=== PATIENT | male | born 1935 | race Caucasian/White ===

== ENCOUNTER 2024-10-16 12:15 | Inpatient (IN) ==
--- NOTE | 2024-10-16 12:50 | XRay Report ---
XR chest 1V portable CLINICAL HISTORY: Chest pain, nonspecific COMPARISON STUDY: 06/29/2020 FINDINGS there are postsurgical changes of midline sternotomy. The heart is mildly enlarged. There is mild elevation of the interstitium, likely secondary to mild interstitial edema. There is slight nikolay nting of the lateral costophrenic angle suggesting trace effusions. There is no lobar consolidation. Air beneath the right hemidiaphragm likely represents colonic interposition IMPRESSION: 1. Slight elevation of the interstitium, likely representing mild interstitial edema. No evidence of lobar consolidation ACT 112: Negative or not required by law. Electronically signed by: Ravinder Carpenter M.D. 10/16/2024 12:49 PM
[2024-10-16 12:57] LABS: Hematocrit (blood only) 42.9 % (42.0-52.0); Hemoglobin 14.4 g/dl (14.0-18.0); Immature Granulocytes # (auto) 0.02 K/uL (0.01-0.20); Immature Granulocytes % (auto) 0.3 %; Mean Corpuscular Hemoglobin 31.7 pg (25.0-34.0); Mean Corpuscular Volume 94.5 fL (80.0-100.0); Platelet Count 128 K/uL (130-400); RDW Standard Deviation 46.6 fL (36.4-46.3); Red Blood Count 4.54 M/uL (4.70-6.10); White Blood Count 6.99 K/ul (4.8-10.8)
[2024-10-16 13:13] LABS: Alanine Aminotransferase 15.0 U/L (7-52); Albumin Globulin Ratio 1.2 (0.9-2); Alkaline Phosphatase 68.0 U/L (34-104); Anion Gap 6.0 (3-11); Bilirubin,Total 1.4 mg/dl (0.2-1.0); Blood Urea Nitrogen 35.0 mg/dl (6-23); Calcium 9.3 mg/dl (8.6-10.3); Carbon Dioxide 23.0 mmol/L (21-32); Chloride 110.0 mmol/L (98-107); Creatinine Clr Calc Pharmacy 31.5 ml/min; Globulin 3.2 gm/dl (2.5-4.0); Glucose 144.0 mg/dl (70-99(Fasting)); Potassium 4.4 mmol/L (3.5-5.1); Sodium 139.0 mmol/L (136-145); Total Protein 6.9 gm/dl (6.0-8.3)
[2024-10-16 13:27] LABS: INR 1.1 (0.9-1.1); Partial Thromboplastin Time 26 Seconds (21-31); Prothrombin Time 11.9 Seconds (9.0-12.0)
[2024-10-16] MEDS: OPTIRAY 320 100ml IV ONE (14:45)
--- NOTE | 2024-10-16 15:01 | CT Scan Report ---
CHEST CT WITH CONTRAST CT DOSE: 559.65 mGy.cm HISTORY: sob TECHNIQUE: Multiaxial CT images of the chest were performed following the IV administration of 90 cc of Optiray. A dose lowering technique was utilized adhering to the principles of ALARA. COMPARISON STUDY: 09/19/2023 FINDINGS: There is mild cardiomegaly with prominence of the pulmonary vasculature consistent with CHF . There are bilateral pleural effusions which layer dependently, moderate on the right and small on t he left. There is adjacent mild to moderate lower lobe compressive atelectasis bilaterally. There is no pneumothorax. No pericardial effusion. No enlarged adenopathy. No thoracic aortic dissection or an eurysm. No pulmonary embolism. There are diffuse coronary artery calcifications. There are moderate d iffuse thoracic spine degenerative changes. IMPRESSION: 1. CHF with bilateral pleural effusions. 2. Otherwise as described. ACT 112: Negative or not required by law. Electronically signed by: Rickey Cordon M.D. 10/16/2024 2:59 PM
--- NOTE | 2024-10-16 15:18 | Emergency Department Note ---
Impression & Plan Congestive heart failure, Mild shortness of breath ED Provider Note CHIEF COMPLAINT: Increased shortness of breath HISTORY OF PRESENTING ILLNESS: Patient is an 89-year-old male who presents to the emergency department today for complaints of increased shortness of breath. He does have a significant history of restrictive lung disease, dyspnea on exertion, elevated diaphragm, interstitial lung disease, aortic regurgitation, moderate to severe aortic stenosis, chronic kidney disease. Patient denies a cough but does have wheezing at times throughout the day. It is worse at night and feels he cannot lay flat to sleep. He does follow with pulmonology and cardiology. Last echo was in August 2024. Denies chest pain, abdominal pain, headache, fevers/chills, blood in stool or urine, any recent illness, or any recent travel. REVIEW OF SYSTEMS: See HPI for pertinent positives and pertinent negatives. ALLERGIES: See below MEDICATIONS: See below PAST MEDICAL HISTORY: See below PHYSICAL EXAM: VITALS: Vitals are noted on the nurse's note and reviewed by myself. GENERAL: Non toxic, in no acute distress, non-diaphoretic. SKIN: Capillary refill <2 sec. EYES: PERRLA. EOMI. Conjunctivae without injection, sclerae without icterus. NECK: Supple without nuchal rigidity. HEART: Regular rate and rhythm without murmurs gallops or rubs. LUNGS: Clear to auscultation bilaterally without wheezes, rales or rhonchi. No retractions or accessory muscle use. ABDOMEN: Positive bowel sounds x 4. Normal tympanic percussion. Soft, nontender to palpation. MUSCULOSKELETAL: Mild swelling noted to the bilateral lower extremities. Nonpitting. No gross musculoskeletal defects. NEURO: Patient was alert and oriented. No focal neurological deficits. DIFFERENTIAL DIAGNOSIS: Differential diagnosis includes acute coronary syndrome, pulmonary embolism, pneumothorax, pericarditis, myocarditis, endocarditis, anxiety, musculoskeletal pain, GERD, costochondritis, pneumonia, among others. ED COURSE AND MEDICAL DECISION MAKING: HISTORY FROM INDEPENDENT HISTORIAN: History was provided by the patient and his son who is at bedside. MONITOR: Continuous classroom monitor: Order was placed for continuous classroom monitor. Patient was placed on the classroom monitor and continuous pulse ox. Patient was noted to be in normal sinus rhythm at an initial rate of 55 bpm per my interpretation. EKG: EKG was interpreted by myself as sinus bradycardia with premature supraventricular complexes. Left ventricular hypertrophy with repolarization abnormality. At a rate of 59 bpm. INTERPRETATION OF LABS: I interpreted the labs with full lab results as below in the lab section of this note. Laboratory results pertinent to the emergent complaint are discussed in the MDM section below. The patient was advised to follow up with their PCP and/or specialist(s) for further outpatient monitoring and management of any abnormal results. INTERPRETATION OF IMAGING: Imaging studies were interpreted by myself and read by radiology as per the imaging section of this note. The patient was advised to follow up with their PCP and/or specialist(s) for further outpatient management of any non-emergent abnormal findings. CHRONIC MEDICAL/SOCIAL CONDITIONS AFFECTING CARE: No social concerns were identified as barriers to patients care. EXTERNAL RECORDS REVIEWED: Patient's previous pulmonary visit from 09/15/2024. And his last primary care visit of 06/30/2024. I also reviewed the patient's previous echocardiogram from 08/25/2024 and compared to 09/10/2023. ESCALATION OF CARE CONSIDERED: I considered admission on this patient with a new onset of congestive heart failure CONSULTATIONS: I had a meaningful discussion about this patient with Dr. Padilla who agrees with my assessment and the treatment plan. SUMMARY: I examined the patient for complaints of worsening SOB. A physical exam and history were performed. Nursing notes, EMR, and medication list were personally reviewed.CBC showed no leukocytosis, anemia, thrombocytopenia. CMP showed BUN 35, creatinine 1.49 which appears to be baseline for the patient. PT/INR and PTT were normal. BNP was 2727. No other emergent findings. CXR showed slight elevation of the interstitium like a mild interstitial edema. CT of chest showed CHF with bilateral pleural effusions. Patient declined any pain medicine or antiemetics here in the emergency department today. I spoke with Dr. Elliott who accepts the patient for admission. The patient and his son were both updated on the plan of care and results of his diagnostic studies. Care was transferred to hospitalist services. 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 Restrictive lung disease Laryngopharyngeal reflux BANKS (dyspnea on exertion) Osteoarthritis (Chronic) Mitral regurgitation (Chronic) Hypothyroid (Chronic) Hypertension (Chronic) Hyperlipidemia (Chronic) GERD (gastroesophageal reflux disease) (Chronic) Aortic insufficiency (Chronic) Anxiety (Chronic) Chronic kidney disease CAD (coronary artery disease) Surgical History History of heart surgery (~2012) History of back surgery 1987 and 1997 History of appendectomy (~1953) History of cataract removal with insertion of prosthetic lens 1987, 1997 S/P CABG x 2 Family History Father Family history of cancer of mouth Anxiety Depression Mother Coronary heart disease Diabetes Cardiac disorder Hypertension Denies family history of Ovarian cancer Prostate cancer Myocardial infarction Breast cancer Colorectal cancer Social History Smoking Status: Never smoker Tobacco Type: Cigarettes Age Started Using Tobacco: 18; Age Quit Using Tobacco: 39; packs per day: 0.25; Cigarettes Per Day: 0.25PPD X 21 YEARS; Second Hand Exposure: No; Do You Dip or Chew Tobacco: No; Hx Alcohol Use: No Hx Substance Use: No Preferred Language: Urdu Communication Ability: Effective Visual Impairment: No Limitations Hearing Ability: Hard of Hearing Faculty Research Assistant Required: No Beliefs That Will Affect Care: None marital status: Current Living Situation: Spouse current occupational status: retired Feels Safe at Home: Yes Childhood Exposure to Second-Hand Smoke: Yes Diet: regular caffeine: Yes during the past year weight has: remained stable Dental Care, Regularly: No Physical Activity Frequency: Daily Seatbelt Use: always Sunscreen Use: No Assistive Devices: None Allergies Allergies Allergy/AdvReac Type Severity Reaction Status Date / Time Penicillins Allergy Unknown HIVES Verified 09/29/24 14:53 Home Meds Home Medications Medication Instructions Recorded Confirmed aspirin 81 mg tablet,delayed 0 mg PO DAILY 12/24/18 10/16/24 release (Adult Low Dose Aspirin) multivitamin 1 tab PO DAILY 07/12/22 10/16/24 metoprolol succinate 50 mg 50 mg PO UD 10/16/24 10/16/24 tablet,extended release 24 hr Previous Rx's Medication Instructions Recorded atorvastatin 80 mg tablet 80 mg PO DAILY #90 tabs 10/15/23 levothyroxine 88 mcg tablet 88 mcg PO DAILY #90 tabs 02/22/24 escitalopram oxalate 20 mg tablet 20 mg PO DAILY #90 tabs 04/17/24 sildenafil 50 mg tablet 50 mg PO DAILY PRN sexual activity 06/03/24 #30 tabs betamethasone valerate 0.1 % 1 applic topical BID PRN skin 09/18/24 topical cream irritation #45 grams albuterol sulfate 90 mcg/actuation 2 puff inhalation Q6H PRN 10/01/24 aerosol inhaler Shortness Of Breath Or Wheezing #18 grams amlodipine 5 mg tablet 5 mg PO DAILY #30 tabs 10/18/24 furosemide 20 mg tablet 20 mg PO DAILY PRN Heart 10/18/24 failure/fluid retention #30 tabs Results & Data (ED) Vital Signs Vital Signs - 24 hr 10/16/24 15:19 Pulse Rate [Apical] 52 L Respiratory Rate 16 Blood Pressure [Right Arm] 167/64 H Blood Pressure Mean [Right Arm] 98 Blood Pressure Position [Right Arm] Semi-fowlers Pulse Oximetry 95 Oxygen Delivery Method Room Air Laboratory Data 10/18/24 08:50 10/18/24 08:50 Lab Results 10/16/24 10/16/24 Range/Units 12:35 15:10 WBC 6.99 (4.8-10.8) K/ul RBC 4.54 L (4.70-6.10) M/uL Hgb 14.4 (14.0-18.0) g/dl Hct 42.9 (42.0-52.0) % MCV 94.5 (80.0-100.0) fL MCH 31.7 (25.0-34.0) pg MCHC 33.6 (32.0-36.0) g/dL RDW Std Deviation 46.6 H (36.4-46.3) fL RDW Coeff of Nida 13.4 (11.5-14.5) % Plt Count 128 L (130-400) K/uL MPV 11.3 (9.4-12.4) fL Immature Gran % (Auto) 0.3 % Neut % (Auto) 59.7 % Lymph % (Auto) 28.8 % [place] % (Auto) 8.3 % Eos % (Auto) 2.6 % Baso % (Auto) 0.3 % Neut # (Auto) 4.18 (1.40-6.50) K/uL Lymph # (Auto) 2.01 (1.20-3.40) K/uL [place] # (Auto) 0.58 (0.11-0.59) K/uL Eos # (Auto) 0.18 (0.00-0.50) K/uL Baso # (Auto) 0.02 (0.00-0.20) K/uL Immature Gran # (Auto) 0.02 (0.01-0.20) K/uL PT 11.9 (9.0-12.0) Seconds INR 1.1 (0.9-1.1) APTT 26 (21-31) Seconds PTT Ratio 1.0 Sodium 139 (136-145) mmol/L Potassium 4.4 (3.5-5.1) mmol/L Chloride 110 H (98-107) mmol/L Carbon Dioxide 23 (21-32) mmol/L Anion Gap 6 (3-11) BUN 35 H (6-23) mg/dl Creatinine 1.49 H (0.6-1.4) mg/dl Est Cr Clr Drug Dosing 31.5 ml/min eGFR 45.14 BUN/Creatinine Ratio 23.5 H (10-20) Glucose 144 H (70-99(Fasting)) mg/dl Calcium 9.3 (8.6-10.3) mg/dl Total Bilirubin 1.4 H (0.2-1.0) mg/dl AST 26 (13-39) U/L ALT 15 (7-52) U/L Alkaline Phosphatase 68 (34-104) U/L Troponin I High Sens 17.4 17.4 (0-20) pg/ml B-Natriuretic Peptide 2727 H (0-100) pg/ml Total Protein 6.9 (6.0-8.3) gm/dl Albumin 3.7 (3.4-5.0) gm/dl Globulin 3.2 (2.5-4.0) gm/dl Albumin/Globulin Ratio 1.2 (0.9-2) Administered Medications Acetaminophen (Acetaminophen 325 Mg Tab) 650 mg PO Q8H PRN PRN Reason: Pain Stop: 11/16/24 09:42 Last Admin: 10/17/24 09:51 Dose: 650 mg Documented By: KARLA Aspirin (Aspirin 81 Mg Ectab) 162 mg PO DAILY PANCHITO Stop: 11/16/24 08:59 Last Admin: 10/18/24 09:30 Dose: 162 mg Documented By: Admin: 10/17/24 09:51 Dose: 162 mg Documented By: AMB Atorvastatin Calcium (Atorvastatin 40 Mg Tab) 80 mg PO DAILY PANCHITO Stop: 11/16/24 08:59 Last Admin: 10/18/24 09:30 Dose: 80 mg Documented By: Admin: 10/17/24 09:51 Dose: 80 mg Documented By: KARLA Escitalopram Oxalate (Escitalopram Oxalate 20 Mg Tab) 20 mg PO DAILY PANCHITO Stop: 11/16/24 08:59 Last Admin: 10/18/24 09:30 Dose: 20 mg Documented By: Admin: 10/17/24 09:51 Dose: 20 mg Documented By: KARLA Furosemide (Furosemide Inj 20 Mg/2 Ml Vial) 20 mg IV QAM PANCHITO Stop: 11/16/24 08:59 Last Admin: 10/18/24 08:52 Dose: 20 mg Documented By: Admin: 10/17/24 09:51 Dose: 20 mg Documented By: KARLA Levothyroxine Sodium (Levothyroxine Sodium 88 Mcg Tablet) 88 mcg PO DAILYBB [facility] Stop: 11/16/24 06:29 Last Admin: 10/18/24 06:22 Dose: 88 mcg Documented By: Admin: 10/17/24 06:42 Dose: 88 mcg Documented By: LORRAINE Metoprolol Succinate (Metoprolol Succ 50mg Ext Rel Tab) 75 mg PO PNACHITO Stop: 11/15/24 20:59 Last Admin: 10/17/24 21:00 Dose: Not Given Documented By: Admin: 10/16/24 20:54 Dose: Not Given Documented By: LORRAINE Discontinued Medications Amlodipine Besylate (Amlodipine Besylate 5 Mg Tab) 5 mg PO NOW ONE Stop: 10/18/24 08:05 Last Admin: 10/18/24 08:49 Dose: 5 mg Documented By: ANNA Furosemide (Furosemide 40 Mg/4 Ml Vial) 40 mg IV ONE ONE Stop: 10/16/24 16:58 Last Admin: 10/16/24 17:24 Dose: 40 mg Documented By: NEIL Ioversol (Optiray 320 100ml) 90 ml IV ONCE ONE Stop: 10/16/24 14:46 Last Admin: 10/16/24 14:45 Dose: 90 ml Documented By: BENITO Metoprolol Tartrate (Metoprolol Tartrate 25 Mg Tab) 25 mg PO ONE ONE Stop: 10/17/24 10:38 Last Admin: 10/17/24 12:16 Dose: 25 mg Documented By: AMB Imaging Data Radiologist's Impression: Chest X-Ray 10/16/24 12:24 XR chest 1V portable CLINICAL HISTORY: Chest pain, nonspecific COMPARISON STUDY: 06/29/2020 FINDINGS there are postsurgical changes of midline sternotomy. The heart is mildly enlarged. There is mild elevation of the interstitium, likely secondary to mild interstitial edema. There is slight blunting of the lateral costophrenic angle suggesting trace effusions. There is no lobar consolidation. Air beneath the right hemidiaphragm likely represents colonic interposition IMPRESSION: 1. Slight elevation of the interstitium, likely representing mild interstitial edema. No evidence of lobar consolidation ACT 112: Negative or not required by law. Electronically signed by: Ravinder Carpenter M.D. 10/16/2024 12:[address] 10/16/24 13:[address] CONTRAST CT DOSE: 559.65 mGy.cm HISTORY: sob TECHNIQUE: Multiaxial CT images of the chest were performed following the IV administration of 90 cc of Optiray. A dose lowering technique was utilized adhering to the principles of ALARA. COMPARISON STUDY: 09/19/2023 FINDINGS: There is mild cardiomegaly with prominence of the pulmonary vasculature consistent with CHF. There are bilateral pleural effusions which layer dependently, moderate on the right and small on the left. There is adjacent mild to moderate lower lobe compressive atelectasis bilaterally. There is no pneumothorax. No pericardial effusion. No enlarged adenopathy. No thoracic aortic dissection or aneurysm. No pulmonary embolism. There are diffuse coronary artery calcifications. There are moderate diffuse thoracic spine degenerative changes. IMPRESSION: 1. CHF with bilateral pleural effusions. 2. Otherwise as described. ACT 112: Negative or not required by law. Electronically signed by: Rickey Cordon M.D. 10/16/2024 2:59 PM Discharge Plan Visit Data Chief Complaint: Shortness of Breath/Dyspnea Stated Complaint: BREATHING ED Provider: Imelda Padilla ED Midlevel Provider: Felicia Kc Discharge Problem: Congestive heart failure, Mild shortness of breath Patient Disposition: Admitted As Inpatient Condition: Good Discharge Instructions Interventions: ED Discharge Assessment Last Done: 10/16/24 16:41 Discharge Problem: Congestive heart failure Qualifiers: Heart failure type: unspecified Heart failure chronicity: unspecified Qualified Code(s): I50.9 - Heart failure, unspecified
--- NOTE | 2024-10-16 15:38 | History & Physical Report ---
Date of Service October 16, 2024 Assessment & Plan (1) Congestive heart failure: (2) Pleural effusion: Plan Patient is an 89-year-old male does have a significant history of restrictive lung disease, dyspnea on exertion, elevated diaphragm, interstitial lung disease, aortic regurgitation, mitral regurgitation, moderate to severe aortic stenosis, CAD S/P CABG (2012); chronic kidney disease HTN , HLD, Hypothyroidism. presented with worsening of shortness of breath for 3 days . On CTscan of chest was found to have pleural effusion( R>L) .He is being admitted for management of Congestive Heart Failure and Pleural effusion. #Congestive heart Failure #Acute on Chronic HFpEF -Worsening of Shortness of breath with dyspnea for 3 days -NYHA class -Likely secondary to Aortic Stenosis -Vitals: BP: 165/70; Pulse: 51 -PE: -BNP elevated; Troponin 17.4 -ECG: -Recent Echocardiogram(08/25/24): EF: 55-60%, Moderate to severe valvular aortic stenosis, Mild to Moderate aortic regurgitation Plan -Lasix 40mg IV stat ordered -Patient on RA currently. Supplement as needed -2l Fluid restriction. Heart healthy diet -Strict Ins/Outs -Electrolyte replacement protocol(Mg>2; K>4) #Pleural effusion History of Present Illness Chief Complaint: Shortness of breath Primary Care Provider: GERALDINE Miles Patient is an 89-year-old male does have a significant history of restrictive lung disease, dyspnea on exertion, elevated diaphragm, interstitial lung disease, aortic regurgitation, mitral regurgitation moderate to severe aortic stenosis, CAD S/P CABG (2012); chronic kidney disease HTN , HLD, Hypothyroidism. Patient presented today with worsening of shortness of breath for 3 days. Patient denies a cough but does have wheezing at times throughout the day. It is worse at night and feels he cannot lay flat to sleep. He does follow with pulmonology and cardiology. His last echo was in August 2024. He denies headache, chest pain, abdominal pain, headache, fevers/chills, blood in stool or urine, any recent illness, or any recent travel. Denies any recent change in diet. He has lost around 4 to 6 pound weight over the last month. Lived with his . Son lives near by 10 miles away from him Patient is a full code. Allergies Allergy/AdvReac Type Severity Reaction Status Date / Time Penicillins Allergy Unknown HIVES Verified 09/29/24 14:53 Home Medications Medication Instructions Recorded Confirmed Type aspirin 81 mg tablet,delayed 0 mg PO DAILY 12/24/18 10/16/24 History release (Adult Low Dose Aspirin) multivitamin 1 tab PO DAILY 07/12/22 10/16/24 History atorvastatin 80 mg tablet 80 mg PO DAILY #90 tabs 10/15/23 10/16/24 Rx levothyroxine 88 mcg tablet 88 mcg PO DAILY #90 tabs 02/22/24 10/16/24 Rx escitalopram oxalate 20 mg tablet 20 mg PO DAILY #90 tabs 04/17/24 10/16/24 Rx sildenafil 50 mg tablet 50 mg PO DAILY PRN sexual activity 06/03/24 10/16/24 Rx #30 tabs betamethasone valerate 0.1 % 1 applic topical BID PRN skin 09/18/24 10/16/24 Rx topical cream irritation #45 grams albuterol sulfate 90 mcg/actuation 2 puff inhalation Q6H PRN 10/01/24 10/16/24 Rx aerosol inhaler Shortness Of Breath Or Wheezing #18 grams metoprolol succinate 50 mg 50 mg PO UD 10/16/24 10/16/24 History tablet,extended release 24 hr Past Med/Surg History Problem List (Updated 10/16/24 @ 17:27 by Cristal Boone MD) Pleural effusion Congestive heart failure (Acute) Prediabetes Aortic stenosis Productive cough ILD (interstitial lung disease) Stage 3b chronic kidney disease Elevated diaphragm Restrictive lung disease Laryngopharyngeal reflux BANKS (dyspnea on exertion) Osteoarthritis (Chronic) Mitral regurgitation (Chronic) Hypothyroid (Chronic) Hypertension (Chronic) Hyperlipidemia (Chronic) GERD (gastroesophageal reflux disease) (Chronic) Aortic insufficiency (Chronic) Anxiety (Chronic) Chronic kidney disease CAD (coronary artery disease) Surgical History History of heart surgery (~2012) History of back surgery 1987 and 1997 History of appendectomy (~1953) History of cataract removal with insertion of prosthetic lens 1987, 1997 S/P CABG x 2 Family History Father Family history of cancer of mouth Anxiety Depression Mother Coronary heart disease Diabetes Cardiac disorder Hypertension Denies family history of Ovarian cancer Prostate cancer Myocardial infarction Breast cancer Colorectal cancer Social History Smoking Status: Never smoker Tobacco Type: Cigarettes Age Started Using Tobacco: 18; Age Quit Using Tobacco: 39; packs per day: 0.25; Cigarettes Per Day: 0.25PPD X 21 YEARS; Second Hand Exposure: No; Do You Dip or Chew Tobacco: No; Hx Alcohol Use: Yes (QUIT AT THE AGE 38) Hx Substance Use: No Preferred Language: Lithuanian Communication Ability: Effective Visual Impairment: No Limitations Hearing Ability: Hard of Hearing Pharmacy Service Associate Required: No Beliefs That Will Affect Care: None marital status: Current Living Situation: Spouse current occupational status: retired Feels Safe at Home: Yes Childhood Exposure to Second-Hand Smoke: Yes Diet: regular caffeine: Yes during the past year weight has: remained stable Dental Care, Regularly: No Physical Activity Frequency: Daily Seatbelt Use: always Sunscreen Use: No Review of Systems Review of Systems: As per HPI Physical Exam Physical Exam: Constitutional: Well appearing, No acute distress, PILCCOD: Negative HEENT: Atraumatic, Normocephalic, No conjunctival injection CVS: S1 S2 no murmur, Regular Rhythm, no LE edema Respiratory: BL equal air entry with NVBS. No rhonchi, wheezes, or crackles. No increased work of breathing GI: Soft, Nondistended, Nontender, Normal Bowel sounds + MSK: No gross deformities noted Skin: Warm, Dry, No rashes Neuro: Alert, Oriented to TPP, No Focal deficit Psych: Mood and Affect congruent, Cooperative on exam Results & Data Results & Data Vital Signs (Past 12 Hours) Vital Signs Temp Pulse Pulse Resp BP BP Pulse Ox 10/16/24 15:19 52 L 16 167/64 H 95 10/16/24 14:04 53 L 10/16/24 13:07 95 10/16/24 13:00 54 L 16 148/64 H 95 10/16/24 12:19 36.6 C 58 L 20 165/75 H 97 O2 Del Method 10/16/24 15:19 Room Air 10/16/24 14:04 10/16/24 13:07 Room Air 10/16/24 13:00 Room Air 10/16/24 12:19 Room Air Supervising Physician Co-Signing Physician Notes I personally examined the patient and verified all bryant points of history and exam, discussed case, and agree with decision making with Dr Mely BANKS - generally quite active but significant BANKS over about the last 3 days. vitals noted nad heent nc at mmm bibasilar diminished breath sounds then ~1/3 up faint rales, then clear. no accessory muscles no conversational dyspnea good effort 96% on RA labs, diagnostics noted, CT personally reviewed as well BANKS -seems to relate predominantly to effusions acutely - those are likely from acute on chronic diastolic CHF (acute on chronic HFpEF) mostly driven by aortic stenosis. recent echo (late august) stable from echo the year previous - no reason to suspect acute worsening in heart function. does not pay attention to sodium in diet - and on diet recall does relate soups and restaurant foods known to be high in sodium. doesn't sound like he did much drastically different than his normal, but of course, diet recall is an inexact science and the "nidus for sodium ingestion" clearly is present - suspect salt -> fluid retention -> CHF -> effusions -discussed that diuretics don't typically improve an effusion, but could improve the little bit of pulmonary edema that remains. discussed that thoracentesis typically done to improve an effusion but he's quite stable on room air so would want to avoid procedures unless needed. for now - lasix 40mg x 1 and follow up in AM / follow sx / sx w ambulation - if doing better, then home. if doing a little better, then consider further attempt at diuresis vs home with serial imaging/close follow up/watchful waiting and thora if not improving on his own over a few weeks. if no better or worse, then thora inpatient -started to educate on low Na diet / consult django developer (1) Congestive heart failure Heart failure chronicity: unspecified Heart failure type: unspecified Qualified Code(s): I50.9 - Heart failure, unspecified
--- NOTE | 2024-10-16 17:16 | Billing Data ---
Date of Service October 16, 2024 Coding Level of Care Code 83416 INT INP/OBS CARE
[2024-10-16] MEDS: FUROSEMIDE 40 MG/4 ML VIAL IV ONE (17:24)
[2024-10-16] MEDS ORDERED: ALBUTEROL HFA 8 GM INHALER INH PRN (18:07)
[2024-10-16] MEDS ORDERED: BETAMETHASONE VAL 0.1% CR 15 GM TOP PRN (18:07)
[2024-10-16] MEDS: METOPROLOL SUCC 50MG EXT REL TAB PO SCH (20:54)
--- NOTE | 2024-10-16 21:00 | History & Physical Report ---
Date of Service October 16, 2024 Assessment & Plan (1) Congestive heart failure: (2) Pleural effusion: Plan Patient is an 89-year-old male does have a significant history of restrictive lung disease, dyspnea on exertion, elevated diaphragm, interstitial lung disease, aortic regurgitation, mitral regurgitation, moderate to severe aortic stenosis, CAD S/P CABG (2012); chronic kidney disease HTN , HLD, Hypothyroidism. presented with worsening of shortness of breath for 3 days . On CTscan of chest was found to have pleural effusion( R>L) .He is being admitted for management of Congestive Heart Failure and Pleural effusion. #Congestive heart Failure #Acute on Chronic HFpEF -Worsening of Shortness of breath with dyspnea for 3 days -NYHA class III -Likely secondary to Aortic Stenosis -Vitals: BP: 165/70; Pulse: 51 -PE: B/L basal rales -BNP elevated; Troponin 17.4 -ECG:No acute changes -Recent Echocardiogram(08/25/24): EF: 55-60%, Moderate to severe valvular aortic stenosis, Mild to Moderate aortic regurgitation Plan -Lasix 40mg IV stat ordered. Follow BMP in the AM -Patient on RA currently. Supplement as needed -2l Fluid restriction. Heart healthy diet -Strict Ins/Outs -Electrolyte replacement protocol(Mg>2; K>4) #Pleural effusion -Moderate effusion(right>left) -Will trial with IV diuretics though Lasix don't typically work on effusion -If symptoms persists, doesn't improve with diuretics may need thoracocentesis. -Will monitor clinical improvement tomorrow. Chronic condition CAD s/p stent: Continue aspirin Hypothyroidism: Continue Levothyroxine Hyperlipidemia: Continue Atorvastatin Depression: Continue Escitalopram Restrictive Lung Disease: continue Home inhalers DVT prophylaxis: Lovenox COde: Full Dispo: Med/Surg with Tele Admission and Anticipated Discharge Date Admission Date: October 16, 2024 History of Present Illness Chief Complaint: Shortness of breth Primary Care Provider: GERALDINE Miles Patient is an 89-year-old male does have a significant history of restrictive lung disease, dyspnea on exertion, elevated diaphragm, interstitial lung disease, aortic regurgitation, mitral regurgitation moderate to severe aortic stenosis, CAD S/P CABG (2012); chronic kidney disease HTN , HLD, Hypothyroidism. Patient presented today with worsening of shortness of breath for 3 days. Patient denies a cough but does have wheezing at times throughout the day. It is worse at night and feels he cannot lay flat to sleep. He does follow with pulmonology and cardiology. His last echo was in August 2024. He denies headache, chest pain, abdominal pain, headache, fevers/chills, blood in stool or urine, any recent illness, or any recent travel. Denies any recent change in diet. He has lost around 4 to 6 pound weight over the last month. Lived with his . Son lives near by 10 miles away from him Patient is a full code. Allergies Allergy/AdvReac Type Severity Reaction Status Date / Time Penicillins Allergy Unknown HIVES Verified 09/29/24 14:53 Home Medications Medication Instructions Recorded Confirmed Type aspirin 81 mg tablet,delayed 0 mg PO DAILY 12/24/18 10/16/24 History release (Adult Low Dose Aspirin) multivitamin 1 tab PO DAILY 07/12/22 10/16/24 History atorvastatin 80 mg tablet 80 mg PO DAILY #90 tabs 10/15/23 10/16/24 Rx levothyroxine 88 mcg tablet 88 mcg PO DAILY #90 tabs 02/22/24 10/16/24 Rx escitalopram oxalate 20 mg tablet 20 mg PO DAILY #90 tabs 04/17/24 10/16/24 Rx sildenafil 50 mg tablet 50 mg PO DAILY PRN sexual activity 06/03/24 10/16/24 Rx #30 tabs betamethasone valerate 0.1 % 1 applic topical BID PRN skin 09/18/24 10/16/24 Rx topical cream irritation #45 grams albuterol sulfate 90 mcg/actuation 2 puff inhalation Q6H PRN 10/01/24 10/16/24 Rx aerosol inhaler Shortness Of Breath Or Wheezing #18 grams metoprolol succinate 50 mg 50 mg PO UD 10/16/24 10/16/24 History tablet,extended release 24 hr Past Med/Surg History Problem List (Updated 10/16/24 @ 17:27 by Cristal Boone MD) Pleural effusion Congestive heart failure (Acute) Prediabetes Aortic stenosis Productive cough ILD (interstitial lung disease) Stage 3b chronic kidney disease Elevated diaphragm Restrictive lung disease Laryngopharyngeal reflux BANKS (dyspnea on exertion) Osteoarthritis (Chronic) Mitral regurgitation (Chronic) Hypothyroid (Chronic) Hypertension (Chronic) Hyperlipidemia (Chronic) GERD (gastroesophageal reflux disease) (Chronic) Aortic insufficiency (Chronic) Anxiety (Chronic) Chronic kidney disease CAD (coronary artery disease) Surgical History History of heart surgery (~2012) History of back surgery 1987 and 1997 History of appendectomy (~195) History of cataract removal with insertion of prosthetic lens 1987, 1997 S/P CABG x 2 Family History Father Family history of cancer of mouth Anxiety Depression Mother Coronary heart disease Diabetes Cardiac disorder Hypertension Denies family history of Ovarian cancer Prostate cancer Myocardial infarction Breast cancer Colorectal cancer Social History Smoking Status: Never smoker Tobacco Type: Cigarettes Age Started Using Tobacco: 18; Age Quit Using Tobacco: 39; packs per day: 0.25; Cigarettes Per Day: 0.25PPD X 21 YEARS; Second Hand Exposure: No; Do You Dip or Chew Tobacco: No; Hx Alcohol Use: No Hx Substance Use: No Preferred Language: Brazilian Communication Ability: Effective Visual Impairment: No Limitations Hearing Ability: Hard of Hearing It Technical Specialist Required: No Beliefs That Will Affect Care: None marital status: Current Living Situation: Spouse current occupational status: retired Feels Safe at Home: Yes Childhood Exposure to Second-Hand Smoke: Yes Diet: regular caffeine: Yes during the past year weight has: remained stable Dental Care, Regularly: No Physical Activity Frequency: Daily Seatbelt Use: always Sunscreen Use: No Assistive Devices: Denture - Upper and Denture - Lower Review of Systems Review of Systems: As per HPI Physical Exam Physical Exam: Constitutional: Well appearing, No acute distress, PILCCOD: Negative HEENT: Atraumatic, Normocephalic, No conjunctival injection CVS: S1 S2 no murmur, Regular Rhythm, no LE edema Respiratory: BL equal air entry with NVBS. No rhonchi, wheezes, or crackles. No increased work of breathing GI: Soft, Nondistended, Nontender, Normal Bowel sounds + MSK: No gross deformities noted Skin: Warm, Dry, No rashes Neuro: Alert, Oriented to TPP, No Focal deficit Psych: Mood and Affect congruent, Cooperative on exam Results & Data Results & Data Vital Signs (Past 12 Hours) Vital Signs Temp Pulse Pulse Pulse Resp BP BP 10/16/24 19:42 36.5 C 55 L 16 172/73 H 10/16/24 19:30 10/16/24 18:20 10/16/24 18:08 36.5 C 60 20 181/75 H 10/16/24 17:13 51 L 20 165/70 H 10/16/24 16:00 51 L 22 166/72 H 10/16/24 15:19 52 L 16 167/64 H 10/16/24 14:04 53 L 10/16/24 13:07 10/16/24 13:00 54 L 16 148/64 H 10/16/24 12:19 36.6 C 58 L 20 165/75 H Pulse Ox O2 Del Method 10/16/24 19:42 94 Room Air 10/16/24 19:30 Room Air 10/16/24 18:20 Room Air 10/16/24 18:08 97 Room Air 10/16/24 17:13 96 Room Air 10/16/24 16:00 96 10/16/24 15:19 95 Room Air 10/16/24 14:04 10/16/24 13:07 95 Room Air 10/16/24 13:00 95 Room Air 10/16/24 12:19 97 Room Air Code Status & VTE Plan VTE Prophylaxis Plan VTE Prophylaxis will be ordered: Yes Supervising Physician Co-Signing Physician Notes I personally examined the patient and verified all bryant points of history and exam, discussed case, and agree with decision making with Dr Mely BANKS - generally quite active but significant BANKS over about the last 3 days. vitals noted nad heent nc at mmm bibasilar diminished breath sounds then ~1/3 up faint rales, then clear. no accessory muscles no conversational dyspnea good effort 96% on RA labs, diagnostics noted, CT personally reviewed as well BANKS -seems to relate predominantly to effusions acutely - those are likely from acute on chronic diastolic CHF (acute on chronic HFpEF) mostly driven by aortic stenosis. recent echo (late august) stable from echo the year previous - no reason to suspect acute worsening in heart function. does not pay attention to sodium in diet - and on diet recall does relate soups and restaurant foods known to be high in sodium. doesn't sound like he did much drastically different than his normal, but of course, diet recall is an inexact science and the "nidus for sodium ingestion" clearly is present - suspect salt -> fluid retention -> CHF -> effusions -discussed that diuretics don't typically improve an effusion, but could improve the little bit of pulmonary edema that remains. discussed that thoracentesis typically done to improve an effusion but he's quite stable on room air so would want to avoid procedures unless needed. for now - lasix 40mg x 1 and follow up in AM / follow sx / sx w ambulation - if doing better, then home. if doing a l ittle better, then consider further attempt at diuresis vs home with serial imaging/close follow up/watchful waiting and thora if not improving on his own over a few weeks. if no better or worse, then maeve inpatient -started to educate on low Na diet / consult catia designer (1) Congestive heart failure Heart failure chronicity: unspecified Heart failure type: unspecified Qualified Code(s): I50.9 - Heart failure, unspecified
[2024-10-17] MEDS: LEVOTHYROXINE SODIUM 88 MCG TABLET PO SCH (06:42)
--- NOTE | 2024-10-17 07:24 | Hospitalist Progress Note ---
Date of Service October 17, 2024 Assessment & Plan (1) Acute heart failure with preserved ejection fraction (HFpEF): Plan: 89-year-old male with a history of moderate AAS, HFpEF, CABG x 2, CAD with PCI, hypothyroidism, hyperlipidemia, depression, RLD who presented with acute on chronic HFpEF. BNP 2727, CTchest with significant pulmonary edema and bilateral pleural effusions. Acute on chronic HFpEF, history of CAD with PCI 3 days of symptoms prior to admission, NYHA class III 08/25/2024 EF 55 to 60%, moderate to severe AAS Lasix IV continued Daily goal net -1-1.5 L No hypoxia Titrate oxygen to goal 90% Continue aspirin, atorvastatin, metoprolol 75 mg at bedtime. Total output 10/16/10/17 3100 cc, net -2.7 L. Will give Lasix IV 20 mg this morning and continue follow-up ins and outs. Continues to be subjectively short of breath and with some orthopnea Beta-matty was held for borderline bradycardia night prior, blood pressure subsequently elevated with some headache this morning. 1 dose of metoprolol tartrate given. CKD 3 Baseline creatinine approximately 1.63 Creatinine stable 10/17 at 1.49 Follow creatinine daily while diuresing Chronic stable issues Hypothyroidism: Continue Synthroid 88 mcg daily Anxiety/depression: Continue Lexapro 20 mg daily DVT prophylaxis: Heparin subcu Disposition: M/T (2) Stage 3b chronic kidney disease: (3) ILD (interstitial lung disease): (4) Hypothyroid: (5) Hypertension: (6) Hyperlipidemia: (7) GERD (gastroesophageal reflux disease): Admission and Anticipated Discharge Date Admission Date: October 16, 2024 Subjective Wilner seen at the bedside. He reports that he peed a lot yesterday, and a little bit today. He has not noticed a significant change in his shortness of breath. He still gets more short of breath when laying flat. Denies lightheadedness and dizziness. Blood pressure was high today and had a little bit of a headache with this, notes his Toprol all was held last night. No other complaints or concerns. No chest pain or chest pressure Physical Exam Physical Exam: General: A&Ox3. NAD. Cooperative. HEENT: Atraumatic, normocephalic. Vision and hearing grossly intact Pulm: Right lower lung crackles/slight rales, trace left-sided basilar crackles which clear on deep breathing. Symmetrical chest rise. No increase in work of breathing. No respiratory distress. Cardiac: RRR, SM present. Radial pulses intact and symmetrical. Abdominal: Nontender, nondistended, soft. BS present. Results & Data Results & Data Vital Signs (Past 12 Hours) Vital Signs Temp Pulse Pulse Resp BP Pulse Ox O2 Del Method 10/17/24 03:00 36.5 C 53 L 16 159/67 H 93 Room Air 10/16/24 23:05 36.6 C 53 L 16 155/65 H 95 Room Air 10/16/24 21:57 49 L 10/16/24 19:42 36.5 C 55 L 16 172/73 H 94 Room Air 10/16/24 19:30 Room Air PG Care Time/CCT Total # of Minutes Spent Total Time Spent with Patient: Total time spent is greater than 50% in coordination of care (as documented) at patient's floor/unit and/or counseling patient: Coding Level of Care Code 09366 SUB INP/OBS CARE 3/50MIN Diagnoses Acute heart failure with preserved ejection fraction (HFpEF) I50.31 Stage 3b chronic kidney disease N18.32 ILD (interstitial lung disease) J84.9 Hypothyroid E03.9 Primary hypertension I10 Hypertension type: primary hypertension Hyperlipidemia, unspecified hyperlipidemia type E78.5 Hyperlipidemia type: unspecified GERD (gastroesophageal reflux disease) K21.9 (5) Hypertension Hypertension type: primary hypertension Qualified Code(s): I10 - Essential (primary) hypertension (6) Hyperlipidemia Hyperlipidemia type: unspecified Qualified Code(s): E78.5 - Hyperlipidemia, unspecified
[2024-10-17 07:49] LABS: Anion Gap 7.0 (3-11); Blood Urea Nitrogen 32.0 mg/dl (6-23); Calcium 9.5 mg/dl (8.6-10.3); Carbon Dioxide 30.0 mmol/L (21-32); Chloride 105.0 mmol/L (98-107); Creatinine Clr Calc Pharmacy 27.1 ml/min; Glucose 79.0 mg/dl (70-99(Fasting)); Potassium 4.8 mmol/L (3.5-5.1); Sodium 142.0 mmol/L (136-145)
[2024-10-17] MEDS: ASPIRIN 81 MG ECTAB PO SCH (09:51)
[2024-10-17] MEDS: ESCITALOPRAM OXALATE 20 MG TAB PO SCH (09:51)
[2024-10-17] MEDS: ATORVASTATIN 40 MG TAB PO SCH (09:51)
[2024-10-17] MEDS: FUROSEMIDE INJ 20 MG/2 ML VIAL IV SCH (09:51)
[2024-10-17] MEDS: ACETAMINOPHEN 325 MG TAB PO PRN (09:51)
--- NOTE | 2024-10-17 11:28 | Electrocardiogram Report ---
Test Reason : Blood Pressure : */* mmHG Vent. Rate : 59 BPM Atrial Rate : 59 BPM P-R Int : 180 ms QRS Dur : 82 ms QT Int : 450 ms P-R-T Axes : 36 49 210 degrees QTcB Int : 445 ms Sinus bradycardia with Premature supraventricular complexes Left ventricular hypertrophy with repolarization abnormality Abnormal ECG Confirmed by Zhao Remy ([id number]) on 10/17/2024 11:28:23 AM Referred By: REFERRED SELF Confirmed By: Zhao Remy
[2024-10-17] MEDS: METOPROLOL TARTRATE 25 MG TAB PO ONE (12:16)
[2024-10-17 19:20] VITALS: RESP 18
[2024-10-18 09:06] LABS: Hematocrit (blood only) 47.5 % (42.0-52.0); Hemoglobin 16.0 g/dl (14.0-18.0); Immature Granulocytes # (auto) 0.01 K/uL (0.01-0.20); Immature Granulocytes % (auto) 0.1 %; Mean Corpuscular Hemoglobin 31.8 pg (25.0-34.0); Mean Corpuscular Volume 94.4 fL (80.0-100.0); Platelet Count 124 K/uL (130-400); RDW Standard Deviation 45.8 fL (36.4-46.3); Red Blood Count 5.03 M/uL (4.70-6.10); White Blood Count 7.64 K/ul (4.8-10.8)
[2024-10-18 09:21] LABS: Anion Gap 6.0 (3-11); Blood Urea Nitrogen 34.0 mg/dl (6-23); Calcium 9.4 mg/dl (8.6-10.3); Carbon Dioxide 28.0 mmol/L (21-32); Chloride 104.0 mmol/L (98-107); Creatinine Clr Calc Pharmacy 28.5 ml/min; Glucose 115.0 mg/dl (70-99(Fasting)); Potassium 4.2 mmol/L (3.5-5.1); Sodium 138.0 mmol/L (136-145)
--- NOTE | 2024-10-18 09:28 | XRay Report ---
Technique: A frontal view of the chest was obtained Findings: There are no confluent pulmonary infiltrates. The heart size is within normal limits. No right pleural effusion or pneumothorax is seen. There is a suspected small left pleural effusion No fracture is noted. Sternal wires are present Impression: Small left pleural effusion Electronically signed by Eduardo Alfaro 10-18-2024 09:28 AM
[2024-10-18 11:31] VITALS: TEMP 97.9; O2SAT 95
--- NOTE | 2024-10-18 11:44 | Discharge Summary ---
Discharge Summary Date of Service October 18, 2024 Principal Dx & Hospital Course #1 = Principal Diagnosis (1) Acute heart failure with preserved ejection fraction (HFpEF): 89-year-old male with a history of moderate AAS, HFpEF, CABG x 2, CAD with PCI, hypothyroidism, hyperlipidemia, depression, RLD who presented with acute on chronic HFpEF. BNP 2727, CTchest with significant pulmonary edema and bilateral pleural effusions. Acute on chronic HFpEF, history of CAD with PCI 3 days of symptoms prior to admission, NYHA class III 08/25/2024 EF 55 to 60%, moderate to severe AAS Was diuresed as inpatient. Initial 40 mg Lasix dose with brisk output, 3100 cc overnight of admission with net of -2.7. Lasix was decreased to 20 mg IV and had around 1 L of output. Clinically he felt much better and was ambulating without hypoxia or shortness of breath. Serial x-ray showed reduced size of his pleural effusion. He felt clinically well and wished for discharge home Kidney function was stable at baseline, and downtrended if admission following IV Lasix Was discharged to continue aspirin/atorvastatin/metoprolol 75 mg at bedtime He appeared near euvolemic at time of discharge, was slightly hypertensive with a history of AAS. Amlodipine was added for afterload reduction. He was normotensive, normal pulse rate, felt well at time of discharge. He was discharged home to follow-up of his doping supervisor and PCP with return precautions. -Lasix as needed was prescribed at discharge for weight gain of more than 3 pounds or development of lower leg edema/orthopnea. Risk of preload dependence with his and overdiuresis was discussed with the patient at time of discharge, expressed an understanding and if he feels he needs as needed dosing of his home Lasix will also call his doping supervisor. CKD 3 Baseline creatinine approximately 1.63 Creatinine stable, downtrended following Lasix. At baseline at time of discharge Chronic stable issues Hypothyroidism: Continue Synthroid 88 mcg daily Anxiety/depression: Continue Lexapro 20 mg daily (2) Stage 3b chronic kidney disease: (3) ILD (interstitial lung disease): (4) Hypothyroid: (5) Hypertension: (6) Hyperlipidemia: (7) GERD (gastroesophageal reflux disease): Admission HPI Per Admitting Provider Patient is an 89-year-old male does have a significant history of restrictive lung disease, dyspnea on exertion, elevated diaphragm, interstitial lung disease, aortic regurgitation, mitral regurgitation moderate to severe aortic stenosis, CAD S/P CABG (2012); chronic kidney disease HTN , HLD, Hypothyroidism. Patient presented today with worsening of shortness of breath for 3 days. Patient denies a cough but does have wheezing at times throughout the day. It is worse at night and feels he cannot lay flat to sleep. He does follow with pulmonology and cardiology. His last echo was in August 2024. He denies headache, chest pain, abdominal pain, headache, fevers/chills, blood in stool or urine, any recent illness, or any recent travel. Denies any recent change in diet. He has lost around 4 to 6 pound weight over the last month. Lived with his . Son lives near by 10 miles away from him Patient is a full code. Discharge Exam General: A&Ox3. NAD. Cooperative. HEENT: Atraumatic, normocephalic. Pulm: CTAB A&P. -wheezes, -rales, -rhonchi. Symmetrical chest rise. No increase in work of breathing. No respiratory distress. Cardiac: RRR,+sm. Radial pulses intact and symmetrical. No JVD Abdominal: Nontender, nondistended, soft. BS present. Extremities: No lower extremity edema Discharge Plan Discharge Items Patient Disposition: Home - Self-Care Reason For Visit: SHORTNESS OF BEATH Discharge Diagnosis: Acute on chronic heart failure Condition on Discharge: Good Activity: Resume your previous activity Non-emergency contact: Primary Care Provider and Cryogenic Transport Driver Call non-emergency contact if: you have any medication questions, your symptoms worsen and your pain is not controlled Follow-up/Referrals: Trey Gilbert CRNP [Primary Care Provider] - Asad Bower PA-C [Physician Commercial Announcer] - (within 1-2 weeks) Diet: Heart Healthy Addtl Attending Provider Instructions: You are seen in the hospital for shortness of breath and orthopnea. You were found to have fluid under your lung, pleural effusions, on x-ray evaluation suggested of some fluid overload. You were treated with diuresis (fluid removing medications) and your shortness of breath resolved. You are not requiring oxygen at time of discharge. You were able to ambulate independently without shortness of breath or low oxygen levels at time of discharge. Due to your aortic stenosis you are at high risk of low blood pressure, passing out, and complications if you are dehydrated. However you are also at risk of volume overload. Your 'euvolemic' or normal window of good hydration may be very narrow, and furosemide should be used cautiously and with consultation of your doping supervisor. Please check your weight on a scale every morning. If you think you are retaining fluid (due to either leg swelling or return of your shortness of breath while laying flat) and gain more than 5 pounds within 2 days then you may take Lasix 20 mg by mouth just been described as needed. Please contact your doping supervisor for recommendations if you feel this is needed, and if you have any chest pain or severe shortness of breath seek medical attention in the emergency department instead. A medication has been added to assist with blood pressure control. Please take amlodipine 5 mg daily by mouth. This may cause a small amount of leg swelling. Please discuss with medication with your doping supervisor at your follow-up appointment. If you develop any new or worsening symptoms including fever, chills, sweats, chest pain, chest pressure, difficulty breathing, uncontrolled nausea/vomiting, rash, wheezing, passing out or nearly passing out, bleeding, black/bloody bowel movements, or other new or concerning symptoms please call your primary care physician, or call 911 for re-evaluation in the emergency department if you are very concerned. Pending Studies at Discharge: No Stand-Alone Forms: My [facility] [employer], Smoking Cessation Medications and DC Order Prescriptions: New amlodipine 5 mg tablet 5 mg PO DAILY Qty: 30 0RF furosemide 20 mg tablet 20 mg PO DAILY PRN (Reason: Heart failure/fluid retention) Qty: 30 0RF Rx Instructions: If weight gain >5lbs in 2 days Continued aspirin [Adult Low Dose Aspirin] 81 mg tablet,delayed release (DR/EC) 0 mg PO DAILY Patient Comments: 10/16- otc unable to verify. original: 162mg po daily atorvastatin 80 mg tablet 80 mg PO DAILY Qty: 90 3RF levothyroxine 88 mcg tablet 88 mcg PO DAILY Qty: 90 1RF escitalopram oxalate 20 mg tablet 20 mg PO DAILY Qty: 90 1RF betamethasone valerate 0.1 % cream 1 applic topical BID PRN (Reason: skin irritation) Qty: 45 2RF albuterol sulfate 90 mcg/actuation HFA aerosol inhaler 2 puff inhalation Q6H PRN (Reason: Shortness Of Breath Or Wheezing) Qty: 18 3RF multivitamin Tablet 1 tab PO DAILY Patient Comments: 10/16- otc unable to verify sildenafil 50 mg tablet 50 mg PO DAILY PRN (Reason: sexual activity) Qty: 30 3RF Rx Instructions: administer 30 minutes to 4 hours before activity metoprolol succinate 50 mg tablet extended release 24 hr 50 mg PO UD Rx Instructions: TAKE 1.5 TABLETS BY MOUTH EVERY DAY AT BEDTIME Discharge Orders: Discharge Order (Routine); Ordered 10/18/24 Ordered By: Denton Jeffries/Other Patient Handouts: Heart Failure Make Changes Diet Admission Data Admit Date/Time: 10/16/24 15:58 Attending Provider: Denton Mendoza Admit Provider: Beau Elliott Primary Care Provider: Trey Gilbert Other Interventions: Discharge Summary Assessment (RN) Last Done: 10/18/24 12:49 Hospital Stay Data Diagnostic Imagining Performed 10/16/24 13:25 CT chest with contrast [CT chest diagnostic w con] Stat Discharge Instructions Given to Patient (Per Discharging Provider) You are seen in the hospital for shortness of breath and orthopnea. You were found to have fluid under your lung, pleural effusions, on x-ray evaluation mendoza ggested of some fluid overload. You were treated with diuresis (fluid removing medications) and your shortness of breath resolved. You are not requiring oxygen at time of discharge. You were able to ambulate independently without shortness of breath or low oxygen levels at time of discharge. Due to your aortic stenosis you are at high risk of low blood pressure, passing out, and complications if you are dehydrated. However you are also at risk of volume overload. Your 'euvolemic' or normal window of good hydration may be very narrow, and furosemide should be used cautiously and with consultation of your doping supervisor. Please check your weight on a scale every morning. If you think you are retaining fluid (due to either leg swelling or return of your shortness of breath while laying flat) and gain more than 5 pounds within 2 days then you may take Lasix 20 mg by mouth just been described as needed. Please contact your doping supervisor for recommendations if you feel this is needed, and if you have any chest pain or severe shortness of breath seek medical attention in the emergency department instead. A medication has been added to assist with blood pressure control. Please take amlodipine 5 mg daily by mouth. This may cause a small amount of leg swelling. Please discuss with medication with your doping supervisor at your follow-up appointment. If you develop any new or worsening symptoms including fever, chills, sweats, chest pain, chest pressure, difficulty breathing, uncontrolled nausea/vomiting, rash, wheezing, passing out or nearly passing out, bleeding, black/bloody bowel movements, or other new or concerning symptoms please call your primary care physician, or call 911 for re-evaluation in the emergency department if you are very concerned. Total Time Total Time Spent Total Time Spent (In Minutes): Time spend day of discharge 35 minutes including direct patient care, documentation, review of labs and images, and coordination of care. Coding Level of Care Code 23005 INP/OBS DISCH >30 MIN Diagnoses Acute heart failure with preserved ejection fraction (HFpEF) I50.31 Stage 3b chronic kidney disease N18.32 ILD (interstitial lung disease) J84.9 Hypothyroid E03.9 Primary hypertension I10 Hypertension type: primary hypertension Hyperlipidemia, unspecified hyperlipidemia type E78.5 Hyperlipidemia type: unspecified GERD (gastroesophageal reflux disease) K21.9
[2024-10-18 12:51] VITALS: BP 148/64; PULSE 58
== END 2024-10-18 14:45 | disposition home or self-care (01) | DRG 291 ==
LOC: ED 12:15 → SUATTDRO 15:58 → 2S 15:58 → 2W 10-17 14:21